=== PATIENT | female | born 1955 | race Caucasian/White ===

== ENCOUNTER 2019-01-16 13:08 | Inpatient (IN) | payer MEDICARE, BC ==
--- NOTE | 2019-01-16 14:37 | EDM.PDOC ---
ED HPI GENERAL MEDICAL PROBLEM - General Chief Complaint: Gastrointestinal Problem Stated Complaint: [facility] Time Seen by Provider: 01/16/19 14:37 Source of Information: Reports: Patient, Family History Limitations: Reports: No Limitations - History of Present Illness INITIAL COMMENTS - FREE TEXT/NARRATIVE: 63 years old female patient brought in by ambulance with chief complaint of nausea and vomiting and diarrhea since Thursday after she took her flu shot. Abdominal cramping. Very frequent loose stool and vomiting can't keep anything down. SHe had some chills but did not check her temperature. Denies any blood in the vomit or stool. No recent antibiotic use. Denies any urinary symptom. Denies any chest pain shortness breath. Feeling very weak and dizzy. Cannot keep anything down. Lower Back Pain Score (Numeric/FACES): 9 - Related Data Allergies Allergy/AdvReac Type Severity Reaction Status Date / Time iodine Allergy Anaphylactic Verified 01/16/19 13:23 Shock Home Meds: Home Meds Acetaminophen with Codeine [Tylenol with Codeine #3 Tablet] 2 tab PO DAILY 11/06 [History] Aspirin 81 mg PO DAILY 11/06/14 [History] Cyanocobalamin (Vitamin B-12) [B-12] 500 mcg PO DAILY 11/06/14 [History] Gabapentin [Neurontin] 600 mg PO BID 11/06/14 [History] Morphine [MS Contin] 30 mg PO BID 11/06/14 [History] PARoxetine [Paxil] 40 mg PO DAILY 11/06/14 [History] Simvastatin [Zocor] 10 mg PO BEDTIME 11/06/14 [History] Past Medical History Gastrointestinal History: Reports: None Musculoskeletal History: Reports: None - Past Surgical History Head Surgeries/Procedures: Reports: None GI Surgical History: Reports: Cholecystectomy Musculoskeletal Surgical History: Reports: Other (See Below) Other Musculoskeletal Surgeries/Procedures:: three back surgeries last one in 2005 Social & Family History - Tobacco Use Smoking Status *Q: Current Every Day Smoker Years of Tobacco use: 35 Packs/Tins Daily: 2 - Caffeine Use Caffeine Use: Reports: Soda - Recreational Drug Use Recreational Drug Use: No ED ROS GENERAL - Review of Systems Review Of Systems: Comprehensive ROS is negative, except as noted in HPI. ED EXAM, GI/ABD - Physical Exam Exam: See Below Exam Limited By: No Limitations General Appearance: Alert, WD/WN, No Apparent Distress Nose: Normal Inspection, Normal Mucosa, No Blood Throat/Mouth: Normal Inspection, Normal Lips, Normal Teeth, Normal Gums, Normal Oropharynx, Normal Voice, No Airway Compromise Head: Atraumatic, Normocephalic Neck: Normal Inspection, Supple, Non-Tender, Full Range of Motion Respiratory/Chest: No Respiratory Distress, Lungs Clear, Normal Breath Sounds, No Accessory Muscle Use, Chest Non-Tender Cardiovascular: Normal Peripheral Pulses, Regular Rate, Rhythm, No Edema, No Gallop, No JVD, No Murmur, No Rub GI/Abdominal Exam: Normal Bowel Sounds, Tender. No: Distended, Guarding, Rigid , Rebound, Hernia, Mass, Hepatomegaly Extremities: Normal Inspection, Normal Range of Motion, Non-Tender, Normal Capillary Refill, No Pedal Edema Psychiatric: Normal Affect, Normal Mood Skin Exam: Warm, Dry, Intact, Normal Color, No Rash Course - Vital Signs Last Recorded V/S: Last Vital Signs Temp 35.3 C 01/16/19 13:12 Pulse 62 01/16/19 13:12 Resp 18 01/16/19 13:12 BP 145/68 H 01/16/19 13:12 Pulse Ox 97 01/16/19 13:12 - Orders/Labs/Meds Orders: Active Orders 24 hr Category Date Time Status UA W/MICROSCOPIC [URIN] Urgent Lab 01/16/19 14:46 Ordered Medication Orders Vancomycin HCl (Vancocin 250 Mg/5 Ml Soln) 125 mg PO QID [facility] Last Admin: 01/16/19 18:23 Dose: 125 mg Labs: Laboratory Tests 01/16/19 01/16/19 01/16/19 Range/Units 15:00 15:00 15:00 WBC 17.2 H (4.5-11.0) K/uL RBC 5.69 H (3.30-5.50) M/uL Hgb 16.8 H (12.0-15.0) g/dL Hct 50.2 H (36.0-48.0) % MCV 88 (80-98) fL MCH 30 (27-31) pg MCHC 34 (32-36) % Plt Count 215 (150-400) K/uL Neut % (Auto) 86 H (36-66) % Lymph % (Auto) 9 L (24-44) % Braxton % (Auto) 5 (2-6) % Eos % (Auto) 0 L (2-4) % Baso % (Auto) 0 (0-1) % Sodium 144 (140-148) mmol/L Potassium 3.3 L (3.6-5.2) mmol/L Chloride 103 (100-108) mmol/L Carbon Dioxide 22 (21-32) mmol/L Anion Gap 22.3 H (5.0-14.0) mmol/L BUN 38 H (7-18) mg/dL Creatinine 1.3 H (0.6-1.0) mg/dL Est Cr Clr Drug Dosing 32.23 mL/min Estimated GFR (MDRD) 42 L (>60) Glucose 139 H (74-106) mg/dL Lactic Acid 3.0 H (0.4-2.0) mmol/L Calcium 10.0 (8.5-10.1) mg/dL Total Bilirubin 0.4 (0.2-1.0) mg/dL AST 39 H (15-37) U/L ALT 67 (12-78) U/L Alkaline Phosphatase 241 H (46-116) U/L C-Reactive Protein 5.99 H (0.0-0.3) mg/dL Total Protein 8.6 H (6.4-8.2) g/dL Albumin 3.9 (3.4-5.0) g/dL Globulin 4.7 H (2.3-3.5) g/dL Albumin/Globulin Ratio 0.8 L (1.2-2.2) Lipase 32 L (73-393) U/L Meds: Medications Generic Name Dose Route Start Last Admin Trade Name Freq PRN Reason Stop Dose Admin Vancomycin HCl 125 mg 01/16/19 18:15 01/16/19 18:23 Vancocin 250 Mg/5 Ml Soln PO 125 mg QID GIUSEPPE Administration Discontinued Medications Generic Name Dose Route Start Last Admin Trade Name Freq PRN Reason Stop Dose Admin Sodium Chloride 1,000 mls @ 500 mls/hr 01/16/19 14:46 01/16/19 15:24 Normal Saline IV 01/16/19 16:45 500 mls/hr .BOLUS STA Administration Sodium Chloride 1,000 mls @ 999 mls/hr 01/16/19 16:30 Normal Saline IV .BOLUS GIUSEPPE Sodium Chloride 1,000 mls @ 999 mls/hr 01/16/19 17:25 01/16/19 17:31 Normal Saline IV 01/16/19 18:25 999 mls/hr ONETIME ONE Administration Ondansetron HCl 4 mg 01/16/19 14:48 01/16/19 15:23 Zofran IVPUSH 01/16/19 14:49 4 mg ONETIME ONE Administration Ondansetron HCl 4 mg 01/16/19 17:30 01/16/19 17:35 Zofran IVPUSH 01/16/19 17:31 4 mg ONETIME ONE Administration Pantoprazole Sodium 40 mg 01/16/19 14:48 01/16/19 15:24 Protonix Iv IVPUSH 01/16/19 14:49 40 mg ONETIME ONE Administration Potassium Chloride 20 meq 01/16/19 16:23 01/16/19 17:26 Klor-Con M20 PO 01/16/19 16:24 20 meq ONETIME ONE Administration Vancomycin HCl 125 mg 01/16/19 22:00 Vancocin 250 Mg/5 Ml Soln PO QID GIUSEPPE Vancomycin HCl Confirm 01/16/19 17:59 01/16/19 18:25 Vancomycin Administered 01/16/19 18:00 Not Given Dose 1 gm .[address]TE .[facility] ONE - Re-Assessments/Exams Free Text/Narrative Re-Assessment/Exam: 01/16/19 18:53 Patient was seen and examined shortly after arrival. Stable. Given 1 L normal saline bolus 2. Given 4 mg IV Zofran 2. Also given formula gram IV morphine. Lab and imaging reviewed with the patient and her daughter at the bedside. Potassium 3.3. Given 20 mEq potassium chloride. Elevated white count, elevated lactic acid and acute kidney injury. Again given a second liter normal saline bolus. C. difficile result came back positive. Started on vancomycin [address] abdomen and pelvis shows possible colitis. Case was discussed with Dr. Rowell hospitalist manager pulmonary and he accepted admission for further management. Patient agrees with the plan. Stable for admission. Departure - Departure Time of Disposition: 17:30 Disposition: Admitted As Inpatient 67 Condition: Fair Clinical Impression: C. difficile colitis, Acute kidney injury, Hypokalemia - Discharge Information *PRESCRIPTION DRUG MONITORING PROGRAM REVIEWED*: Not Applicable *COPY OF PRESCRIPTION DRUG MONITORING REPORT IN PATIENT ISHAN: Not Applicable - My Orders Last 24 Hours: My Active Orders 01/16/19 14:46 UA W/MICROSCOPIC [URIN] Urgent - Assessment/Plan Last 24 Hours: My Active Orders 01/16/19 14:46 UA W/MICROSCOPIC [URIN] Urgent Plan: Admission to Dr. Rowell
[2019-01-16] MEDS ORDERED: Sodium Chloride 0.9% 1,000 ML IV STA (14:46)
[2019-01-16] MEDS ORDERED: Ondansetron 4 MG/2 ML SDV IVPUSH ONE ×2 (14:48→17:30)
[2019-01-16] MEDS ORDERED: Pantoprazole 40 MG Vial IVPUSH ONE (14:48)
[2019-01-16] MEDS ORDERED: Potassium Chloride 20 MEQ Tab.ER PO ONE (16:23)
[2019-01-16] MEDS ORDERED: Sodium Chloride 0.9% 1,000 ML IV SCH (16:30)
[2019-01-16] MEDS ORDERED: Sodium Chloride 0.9% 1,000 ML IV ONE (17:25)
--- NOTE | 2019-01-16 17:48 | CRLCT ---
INDICATION: Vomiting diarrhea pain. TECHNIQUE: Noncontrast CT abdomen and pelvis coronal sagittal reformat images obtained. COMPARISON: No comparison studies are available Findings: The heart size is normal. There is no pericardial effusion. Mild emphysema lung bases are clear. Small hiatal hernia. Unenhanced liver is unremarkable. Pancreas is unremarkable. Cholecystectomy no significant biliary dilatation. Kidneys are unremarkable. No hydronephrosis or nephrolithiasis. Normal caliber abdominal aorta. Diverticulosis. Colon is decompressed however there the could be some bowel wall thickening which is difficult to assess given lack of contrast, especially in the rectosigmoid colon. Urinary bladder is unremarkable. Lumbar fusion change. No suspicious bony lesions. IMPRESSION: 1. Colon is decompressed however there could be possible wall thickening of the colon specifically in the rectosigmoid colon which could be correlated with possible colitis. There is otherwise no acute findings in the abdomen or pelvis. Please note that all CT scans at this facility use dose modulation, iterative reconstruction, and/or weight-based dosing when appropriate to reduce radiation dose to as low as reasonably achievable. Dictated by Lolly Elliott MD @ Jan 16 2019 5:31PM Signed by Dr. Lolly Elliott @ Jan 16 2019 5:46PM
[2019-01-16] MEDS ORDERED: Vancomycin 1 GM SDV ONE (17:59)
[2019-01-16] MEDS: Vancomycin 250 MG/5 ML ML Oral Solution PO SCH ×2 (18:23→21:56)
--- NOTE | 2019-01-16 18:23 | PCM.HP.2 ---
H&P History of Present Illness - General Date of Service: 01/16/19 Admit Problem/Dx: Admission Diagnosis/Problem Admission Diagnosis/Problem Clostridium difficile enterocolitis Source of Information: Patient, Family, Provider History Limitations: Reports: No Limitations - History of Present Illness Initial Comments - Free Text/Narative: CC: I'm miserable HPI: Lilly presents to the emergency room today with diarrhea, nausea and vomiting that have been present since Thursday, about 48 hours ago. She had her flu shot on Thursday and then later in the evening developed initially nausea followed by vomiting and then diarrhea. She has had many liquid bowel movements per day since that time. She has had multiple rounds of emesis as well. Emesis has been yellow and there has not been any blood. No blood in her stool either. She is had subjective fevers and chills but has not measured any temperatures. She does not report any abdominal pain but has significant tenderness with examination. Appetite has been absent. She is not had anything to eat or drink that has stayed down since Thursday. She does not feel short of breath and has not had chest pain. No skin rashes. No sick contacts that she is aware of. She has not had recent antibiotics. These are steadily getting worse. Work-up in the emergency room revealed leukocytosis, acute kidney injury, dehydration and elevated lactic acid. CT scan showed nonspecific sigmoid colitis. C. difficile testing was positive. Lower Back Pain Score (Numeric/FACES): 9 - Related Data Allergies/Adverse Reactions: Allergies Allergy/AdvReac Type Severity Reaction Status Date / Time iodine Allergy Anaphylactic Verified 01/16/19 13:23 Shock Home Medications: Home Meds Acetaminophen with Codeine [Tylenol with Codeine #3 Tablet] 2 tab PO DAILY 11/06 [History] Aspirin 81 mg PO DAILY 11/06/14 [History] Cyanocobalamin (Vitamin B-12) [B-12] 500 mcg PO DAILY 11/06/14 [History] Gabapentin [Neurontin] 600 mg PO BID 11/06/14 [History] Morphine [MS Contin] 30 mg PO BID 11/06/14 [History] PARoxetine [Paxil] 40 mg PO DAILY 11/06/14 [History] Simvastatin [Zocor] 10 mg PO BEDTIME 11/06/14 [History] Past Medical History Gastrointestinal History: Reports: None Musculoskeletal History: Reports: None - Past Surgical History Head Surgeries/Procedures: Reports: None GI Surgical History: Reports: Cholecystectomy Musculoskeletal Surgical History: Reports: Other (See Below) Other Musculoskeletal Surgeries/Procedures:: three back surgeries last one in 2005 Social & Family History - Family History GI: Denies: Inflammatory Bowel Disease - Tobacco Use Smoking Status *Q: Current Every Day Smoker Years of Tobacco use: 35 Packs/Tins Daily: 2 - Caffeine Use Caffeine Use: Reports: Soda - Alcohol Use Alcohol Use History: No - Recreational Drug Use Recreational Drug Use: No H&P Review of Systems - Review of Systems: Review Of Systems: See Below Free Text/Narrative: A complete 12 point review of systems was obtained. Pertinent positives and negatives are noted in the history of present illness. All other systems were reviewed and were negative except as noted. Exam - Exam Exam: See Below - Vital Signs Vital Signs: Last Vital Signs Temp 35.3 C 01/16/19 13:12 Pulse 62 01/16/19 13:12 Resp 18 01/16/19 13:12 BP 145/68 H 01/16/19 13:12 Pulse Ox 97 01/16/19 13:12 Weight: 63.503 kg - Exam Quality Assessment: No: Supplemental Oxygen General: Alert, Oriented, Cooperative, Mild Distress HEENT: Conjunctiva Clear. No: Mucosa Moist & [place] (dry), Scleral Icterus Neck: Supple, Trachea Midline Lungs: Clear to Auscultation, Normal Respiratory Effort Cardiovascular: Regular Rate, Regular Rhythm. No: Systolic Murmur GI/Abdominal Exam: Normal Bowel Sounds, Soft, No Distention, Tender (moderate left lower abdomen ). No: Guarding Extremities: No Pedal Edema. No: Increased Warmth Peripheral Pulses: 2+: Dorsalis Pedis (L), Dorsalis Pedis (R) Skin: Warm, Dry Neuro Extensive - Mental Status: Alert, Oriented x3, Nl Response to Commands Neuro Extensive - Motor, Sensory, Reflexes: No: Dysarthria, Abnormal Motor, Tremor Psychiatric: Alert, Normal Affect - Patient Data Lab Results Last 24 hrs: Laboratory Results - last 24 hr 01/16/19 01/16/19 01/16/19 Range/Units 15:00 15:00 15:00 WBC 17.2 H (4.5-11.0) K/uL RBC 5.69 H (3.30-5.50) M/uL Hgb 16.8 H (12.0-15.0) g/dL Hct 50.2 H (36.0-48.0) % MCV 88 (80-98) fL MCH 30 (27-31) pg MCHC 34 (32-36) % Plt Count 215 (150-400) K/uL Neut % (Auto) 86 H (36-66) % Lymph % (Auto) 9 L (24-44) % Faulk % (Auto) 5 (2-6) % Eos % (Auto) 0 L (2-4) % Baso % (Auto) 0 (0-1) % Sodium 144 (140-148) mmol/L Potassium 3.3 L (3.6-5.2) mmol/L Chloride 103 (100-108) mmol/L Carbon Dioxide 22 (21-32) mmol/L Anion Gap 22.3 H (5.0-14.0) mmol/L BUN 38 H (7-18) mg/dL Creatinine 1.3 H (0.6-1.0) mg/dL Est Cr Clr Drug Dosing 32.23 mL/min Estimated GFR (MDRD) 42 L (>60) Glucose 139 H (74-106) mg/dL Lactic Acid 3.0 H (0.4-2.0) mmol/L Calcium 10.0 (8.5-10.1) mg/dL Total Bilirubin 0.4 (0.2-1.0) mg/dL AST 39 H (15-37) U/L ALT 67 (12-78) U/L Alkaline Phosphatase 241 H (46-116) U/L C-Reactive Protein 5.99 H (0.0-0.3) mg/dL Total Protein 8.6 H (6.4-8.2) g/dL Albumin 3.9 (3.4-5.0) g/dL Globulin 4.7 H (2.3-3.5) g/dL Albumin/Globulin Ratio 0.8 L (1.2-2.2) Lipase 32 L (73-393) U/L Result Diagrams: 01/16/19 15:00 01/16/19 15:00 James Results Last 24 hrs: Microbiology 01/16/19 15:32 Clostridioides difficile Toxin Assay - Final Stool / Feces Clostridioides difficile (PCR) - Final Imaging Impressions Last 24 hrs: CT abdomen and pelvis - images personally reviewed - mild nonspecific colitis of the sigmoid colon. No perforation. *Q Meaningful Use (ADM) - VTE Risk Assess *Q Each Risk Factor Represents 1 Point: None Total Score 1 Point Risk Factors: 0 Each Risk Factor Represents 2 Points: Age 60 - 74 Years Total Score 2 Point Risk Factors: 2 Each Risk Factor Represents 3 Points: None Total Score 3 Point Risk Factors: 0 Each Risk Factor Represents 5 Points: None Total Score 5 Point Risk Factors: 0 Venous Thromboembolism Risk Factor Score *Q: 2 - Problem List (1) C. difficile colitis SNOMED Code(s): 227902285 ICD Code: A04.72 - ENTEROCOLITIS D/T CLOSTRIDIUM DIFFICILE, NOT SPCF RECUR Status: Acute Current Visit: Yes (2) Acute kidney injury SNOMED Code(s): 70266164, 81611618 ICD Code: N17.9 - ACUTE KIDNEY FAILURE, UNSPECIFIED Status: Acute Current Visit: Yes (3) Hypokalemia SNOMED Code(s): 95817214 ICD Code: E87.6 - HYPOKALEMIA Status: Acute Current Visit: Yes (4) Tobacco dependence SNOMED Code(s): 70176977 ICD Code: F17.200 - NICOTINE DEPENDENCE, UNSPECIFIED, UNCOMPLICATED Status : Chronic Current Visit: Yes Problem List Initiated/Reviewed/Updated: Yes Orders Last 24hrs: Active Orders 24 hr Category Date Time Status Patient Status Manage Transfer [TRANSFER] Routine ADT 01/16/19 18:13 Ordered UA W/MICROSCOPIC [URIN] Urgent Lab 01/16/19 14:46 Ordered Sodium Chloride 0.9% [Normal Saline] 1,000 ml Med 01/16/19 17:25 Active IV ONETIME Vancomycin [Vancocin 250 MG/5 ML Soln] Med 01/16/19 18:15 Active 125 mg PO QID Resuscitation Status Routine Resus Stat 01/16/19 18:16 Ordered Medication Orders Sodium Chloride (Normal Saline) 1,000 mls @ 999 mls/hr IV ONETIME ONE Stop: 01/16/19 18:25 Last Admin: 01/16/19 17:31 Dose: 999 mls/hr Vancomycin HCl (Vancocin 250 Mg/5 Ml Soln) 125 mg PO QID [facility] Assessment/Plan Comment:: ASSESSMENT AND PLAN - C. difficile enterocolitis-symptoms of diarrhea, nausea, vomiting and some abdominal pain. She has leukocytosis as well as profuse diarrhea. Testing showed positive antigen but negative toxin testing but there is a high degree of likelihood this is acute C. difficile infection so I suspect that toxin testing was a false negative. She has received her first dose of vancomycin in the emergency room. Not safe for outpatient management given significant dehydration and inability to keep much of anything down. -Oral vancomycin 4 times daily -Probiotic twice daily -Symptom management for nausea and pain -IV fluids for hydration -Isolation status Acute kidney injury-creatinine is 1.3 and this is likely greater than 50% elevated from her baseline. -Fluids as above and repeat labs in the morning Hypokalemia-mild, secondary to increased losses as well as poor intake. -20 mEq of potassium chloride via IV piggyback -Potassium containing IV fluids Tobacco dependence-nicotine patch. Maintenance issues - - DVT prophylaxis -mechanical - GI prophylaxis -PPI - Nutrition -clear liquids - Gabriel catheter -not indicated CODE STATUS -full code Admission justification -this patient will be admitted for inpatient services and is medically appropriate meeting medical necessity for inpatient admission as outlined in my documentation. I reasonably expect the patient will require inpatient services that span a period time over 2 midnights. I reasonably expect this patient to be discharged or transferred within 96 hours [facility]. Disposition -I would anticipate discharge home after the hospital stay Primary care physician - Dr Mario Rowell M.D. - Mortality Measure Prognosis:: Good
[2019-01-16] MEDS ORDERED: Pantoprazole 40 MG Vial IV ONE (19:55)
[2019-01-16] MEDS ORDERED: Morphine 2 MG/ML Syringe IVPUSH PRN (19:55)
[2019-01-16] MEDS ORDERED: Ondansetron 4 MG Tab.DIS PO PRN (19:55)
[2019-01-16] MEDS ORDERED: Albuterol 0.083% 2.5 MG/3 ML Neb Soln NEB PRN (19:55)
[2019-01-16] MEDS ORDERED: Calcium Carbonate 500 MG Tab.Chew PO PRN (19:55)
[2019-01-16] MEDS ORDERED: Ibuprofen 600 MG Tab PO PRN (19:55)
[2019-01-16] MEDS ORDERED: LORazepam 2 MG/ML SDV IVPUSH PRN (19:55)
[2019-01-16] MEDS ORDERED: Ondansetron 4 MG/2 ML SDV IV PRN (19:55)
[2019-01-16] MEDS ORDERED: Promethazine 6.25 MG in Sodium Chloride 0.9% 50 ML IV PRN (19:55)
[2019-01-16] MEDS ORDERED: Potassium Chloride 20 MEQ, Lidocaine 1% 2 ML in Sodium Chloride 0.9% 100 ML IV SCH (20:30)
[2019-01-16] MEDS: NS + KCl 20mEq/L 1,000 ML IV SCH (20:40)
[2019-01-16] MEDS: Simvastatin 20 MG Tab PO SCH (20:46)
[2019-01-16] MEDS: Gabapentin 300 MG Cap PO SCH (20:46)
[2019-01-16] MEDS ORDERED: Lidocaine 1% 2 ML ONE (20:59)
[2019-01-16] MEDS ORDERED: Potassium Chloride 100 ML ONE (21:00)
[2019-01-16] MEDS: Lactobacillus Rhamnosus GG (Probiotic) Cap PO SCH (21:24)
[2019-01-16] MEDS: Morphine 30 MG Tab.ER PO SCH (21:24)
[2019-01-16] MEDS ORDERED: Vancomycin 250 MG/5 ML ML Oral Solution PO SCH (22:00)
[2019-01-17] MEDS: Acetaminophen 325 MG Tab PO PRN (00:05)
[2019-01-17] MEDS: NS + KCl 20mEq/L 1,000 ML IV SCH ×2 (03:25→12:01)
[2019-01-17] MEDS: Vancomycin 250 MG/5 ML ML Oral Solution PO SCH ×2 (05:06→10:07)
[2019-01-17] MEDS: Aspirin 81 MG Tab.Chew PO SCH (09:14)
[2019-01-17] MEDS: PARoxetine 20 MG Tab PO SCH (09:14)
[2019-01-17] MEDS: Cyanocobalamin (Vitamin B12) 1,000 MCG Tab PO SCH (09:14)
[2019-01-17] MEDS: Lactobacillus Rhamnosus GG (Probiotic) Cap PO SCH ×2 (09:14→20:33)
[2019-01-17] MEDS: Gabapentin 300 MG Cap PO SCH ×2 (09:15→20:33)
[2019-01-17] MEDS: Morphine 30 MG Tab.ER PO SCH ×2 (09:21→20:34)
[2019-01-17] MEDS: Acetaminophen/Codeine 300-30 MG Tab PO PRN ×2 (13:15→20:35)
--- NOTE | 2019-01-17 14:55 | PCM.PN ---
- General Info Date of Service: 01/17/19 Subjective Update: Ms. Garza has experienced moderate improvement since admission yesterday. She is had only minimal diarrhea and no significant temperature elevations. White blood cell count from admission and only mildly elevated. Functional Status: Reports: Pain Controlled, Tolerating Diet, Ambulating, Urinating - Review of Systems General: Reports: Weakness. Denies: Fever, Chills Pulmonary: Reports: No Symptoms Cardiovascular: Reports: No Symptoms Gastrointestinal: Reports: Decreased Appetite, Diarrhea. Denies: Abdominal Pain , Difficulty Swallowing, Nausea, Vomiting - Patient Data Vitals - Most Recent: Last Vital Signs Temp 98.2 F 01/17/19 11:54 Pulse 68 01/17/19 11:54 Resp 16 01/17/19 11:54 BP 128/69 01/17/19 11:54 Pulse Ox 94 L 01/17/19 11:54 Weight - Most Recent: 140 lb I&O - Last 24 Hours: Intake & Output 01/16/19 01/17/19 01/17/19 22:59 06:59 14:59 Intake Total 100 1888 600 Output Total 25 200 450 Balance 75 1688 150 Lab Results Last 24 Hours: Laboratory Results - last 24 hr 01/16/19 01/16/19 01/16/19 Range/Units 15:00 15:00 15:00 WBC 17.2 H (4.5-11.0) K/uL RBC 5.69 H (3.30-5.50) M/uL Hgb 16.8 H (12.0-15.0) g/dL Hct 50.2 H (36.0-48.0) % MCV 88 (80-98) fL MCH 30 (27-31) pg MCHC 34 (32-36) % Plt Count 215 (150-400) K/uL Neut % (Auto) 86 H (36-66) % Lymph % (Auto) 9 L (24-44) % [place] % (Auto) 5 (2-6) % Eos % (Auto) 0 L (2-4) % Baso % (Auto) 0 (0-1) % Sodium 144 (140-148) mmol/L Potassium 3.3 L (3.6-5.2) mmol/L Chloride 103 (100-108) mmol/L Carbon Dioxide 22 (21-32) mmol/L Anion Gap 22.3 H (5.0-14.0) mmol/L BUN 38 H (7-18) mg/dL Creatinine 1.3 H (0.6-1.0) mg/dL Est Cr Clr Drug Dosing 32.23 mL/min Estimated GFR (MDRD) 42 L (>60) Glucose 139 H (74-106) mg/dL Lactic Acid 3.0 H (0.4-2.0) mmol/L Calcium 10.0 (8.5-10.1) mg/dL Magnesium (1.8-2.4) mg/dL Total Bilirubin 0.4 (0.2-1.0) mg/dL AST 39 H (15-37) U/L ALT 67 (12-78) U/L Alkaline Phosphatase 241 H (46-116) U/L C-Reactive Protein 5.99 H (0.0-0.3) mg/dL Total Protein 8.6 H (6.4-8.2) g/dL Albumin 3.9 (3.4-5.0) g/dL Globulin 4.7 H (2.3-3.5) g/dL Albumin/Globulin Ratio 0.8 L (1.2-2.2) Lipase 32 L (73-393) U/L Urine Color (YELLOW) Urine Appearance (CLEAR) Urine pH (5.0-8.0) Ur Specific [place] (1.008-1.030) Urine Protein (NEGATIVE) mg/dL Urine Glucose (UA) (NEGATIVE) mg/dL Urine Ketones (NEGATIVE) mg/dL Urine Occult Blood (NEGATIVE) Urine Nitrite (NEGATIVE) Urine Bilirubin (NEGATIVE) Urine Urobilinogen (0.2-1.0) EU/dL Ur Leukocyte Esterase (NEGATIVE) Urine RBC (0-5) Urine WBC (0-5) Ur Epithelial Cells Amorphous Sediment Urine Bacteria Urine Mucus 01/16/19 01/17/19 01/17/19 Range/Units 21:08 04:00 04:00 WBC 12.3 H (4.5-11.0) K/uL RBC 4.65 (3.30-5.50) M/uL Hgb 13.7 D (12.0-15.0) g/dL Hct 42.3 (36.0-48.0) % MCV 91 (80-98) fL MCH 30 (27-31) pg MCHC 32 (32-36) % Plt Count 180 (150-400) K/uL Neut % (Auto) (36-66) % Lymph % (Auto) (24-44) % [place] % (Auto) (2-6) % Eos % (Auto) (2-4) % Baso % (Auto) (0-1) % Sodium 146 (140-148) mmol/L Potassium 4.1 (3.6-5.2) mmol/L Chloride 113 H (100-108) mmol/L Carbon Dioxide 22 (21-32) mmol/L Anion Gap 15.1 H (5.0-14.0) mmol/L BUN 25 H (7-18) mg/dL Creatinine 1.0 (0.6-1.0) mg/dL Est Cr Clr Drug Dosing 41.90 mL/min Estimated GFR (MDRD) 56 L (>60) Glucose 101 (74-106) mg/dL Lactic Acid 2.2 H (0.4-2.0) mmol/L Calcium 8.0 L D (8.5-10.1) mg/dL Magnesium 2.0 (1.8-2.4) mg/dL Total Bilirubin (0.2-1.0) mg/dL AST (15-37) U/L ALT (12-78) U/L Alkaline Phosphatase (46-116) U/L C-Reactive Protein (0.0-0.3) mg/dL Total Protein (6.4-8.2) g/dL Albumin (3.4-5.0) g/dL Globulin (2.3-3.5) g/dL Albumin/Globulin Ratio (1.2-2.2) Lipase (73-393) U/L Urine Color (YELLOW) Urine Appearance (CLEAR) Urine pH (5.0-8.0) Ur Specific [place] (1.008-1.030) Urine Protein (NEGATIVE) mg/dL Urine Glucose (UA) (NEGATIVE) mg/dL Urine Ketones (NEGATIVE) mg/dL Urine Occult Blood (NEGATIVE) Urine Nitrite (NEGATIVE) Urine Bilirubin (NEGATIVE) Urine Urobilinogen (0.2-1.0) EU/dL Ur Leukocyte Esterase (NEGATIVE) Urine RBC (0-5) Urine WBC (0-5) Ur Epithelial Cells Amorphous Sediment Urine Bacteria Urine Mucus 01/17/19 Range/Units 04:40 WBC (4.5-11.0) K/uL RBC (3.30-5.50) M/uL Hgb (12.0-15.0) g/dL Hct (36.0-48.0) % MCV (80-98) fL MCH (27-31) pg MCHC (32-36) % Plt Count (150-400) K/uL Neut % (Auto) (36-66) % Lymph % (Auto) (24-44) % [place] % (Auto) (2-6) % Eos % (Auto) (2-4) % Baso % (Auto) (0-1) % Sodium (140-148) mmol/L Potassium (3.6-5.2) mmol/L Chloride (100-108) mmol/L Carbon Dioxide (21-32) mmol/L Anion Gap (5.0-14.0) mmol/L BUN (7-18) mg/dL Creatinine (0.6-1.0) mg/dL Est Cr Clr Drug Dosing mL/min Estimated GFR (MDRD) (>60) Glucose (74-106) mg/dL Lactic Acid (0.4-2.0) mmol/L Calcium (8.5-10.1) mg/dL Magnesium (1.8-2.4) mg/dL Total Bilirubin (0.2-1.0) mg/dL AST (15-37) U/L ALT (12-78) U/L Alkaline Phosphatase (46-116) U/L C-Reactive Protein (0.0-0.3) mg/dL Total Protein (6.4-8.2) g/dL Albumin (3.4-5.0) g/dL Globulin (2.3-3.5) g/dL Albumin/Globulin Ratio (1.2-2.2) Lipase (73-393) U/L Urine Color Yellow (YELLOW) Urine Appearance Clear (CLEAR) Urine pH 6.0 (5.0-8.0) Ur Specific [place] 1.020 (1.008-1.030) Urine Protein Trace H (NEGATIVE) mg/dL Urine Glucose (UA) Negative (NEGATIVE) mg/dL Urine Ketones 40 H (NEGATIVE) mg/dL Urine Occult Blood Negative (NEGATIVE) Urine Nitrite Negative (NEGATIVE) Urine Bilirubin Negative (NEGATIVE) Urine Urobilinogen 0.2 (0.2-1.0) EU/dL Ur Leukocyte Esterase Negative (NEGATIVE) Urine RBC 0-5 (0-5) Urine WBC 0-5 (0-5) Ur Epithelial Cells Few Amorphous Sediment Not seen Urine Bacteria Few Urine Mucus Few James Results Last 24 Hours: Microbiology 01/16/19 15:32 Clostridioides difficile Toxin Assay - Final Stool / Feces Clostridioides difficile (PCR) - Final Med Orders - Current: Current Medications Acetaminophen (Tylenol) 650 mg PO Q4H PRN PRN Reason: Pain (Mild 1-3)/fever Last Admin: 01/17/19 00:05 Dose: 650 mg Acetaminophen/Codeine Phosphate (Tylenol With Codeine No.3 300mg/30mg) 2 tab PO Q4H PRN PRN Reason: Pain Last Admin: 01/17/19 13:15 Dose: 2 tab Albuterol (Proventil Neb Soln) 2.5 mg NEB Q4H PRN PRN Reason: Shortness Of Breath/wheezing Aspirin (Aspirin) 81 mg PO DAILY [facility] Last Admin: 01/17/19 09:14 Dose: 81 mg Calcium Carbonate/Glycine (Tums) 1,000 mg PO Q2H PRN PRN Reason: Indigestion Cyanocobalamin (Vitamin B12) 500 mcg PO DAILY [facility] Last Admin: 01/17/19 09:14 Dose: 500 mcg Gabapentin (Neurontin) 600 mg PO BID [facility] Last Admin: 01/17/19 09:15 Dose: 600 mg Promethazine HCl 6.25 mg/ (Sodium Chloride) 50.25 mls @ 200 mls/hr IV Q6H PRN PRN Reason: Nausea/Vomiting Ciprofloxacin/Dextrose 400 mg/ (Premix) 200 mls @ 200 mls/hr IV Q8H [facility] Metronidazole 500 mg/ Premix 100 mls @ 100 mls/hr IV Q8H [facility] Ibuprofen (Motrin) 600 mg PO Q6H PRN PRN Reason: Pain/Fever Lactobacillus Rhamnosus (Culturelle) 1 cap PO BID [facility] Last Admin: 01/17/19 09:14 Dose: 1 cap Lorazepam (Ativan) 0.5 mg IVPUSH Q4H PRN PRN Reason: Nausea/Vomiting Last Admin: 01/16/19 21:03 Dose: 0.5 mg Morphine Sulfate (Ms Contin) 30 mg PO BID [facility] Last Admin: 01/17/19 09:21 Dose: 30 mg Morphine Sulfate (Morphine) 2 mg IVPUSH Q2H PRN PRN Reason: Pain (severe 7-10) Ondansetron HCl (Zofran Odt) 4 mg PO Q6H PRN PRN Reason: Nausea able to take PO Ondansetron HCl (Zofran) 4 mg IV Q6H PRN PRN Reason: Nausea/Vomiting Paroxetine HCl (Paxil) 40 mg PO DAILY [facility] Last Admin: 01/17/19 09:14 Dose: 40 mg Simvastatin (Zocor) 10 mg PO BEDTIME [facility] Last Admin: 01/16/19 20:46 Dose: Not Given Discontinued Medications Sodium Chloride (Normal Saline) 1,000 mls @ 500 mls/hr IV .BOLUS STA Stop: 01/16/19 16:45 Last Admin: 01/16/19 15:24 Dose: 500 mls/hr Sodium Chloride (Normal Saline) 1,000 mls @ 999 mls/hr IV .BOLUS [facility] Sodium Chloride (Normal Saline) 1,000 mls @ 999 mls/hr IV ONETIME ONE Stop: 01/16/19 18:25 Last Admin: 01/16/19 17:31 Dose: 999 mls/hr Potassium Chloride 20 meq/Lidocaine HCl 2 ml/ Sodium Chloride 112 mls @ 50 mls/ hr IV Q2H [facility] Stop: 01/16/19 22:29 Last Infusion: 01/16/19 22:48 Dose: 25 mls/hr Potassium Chloride/Sodium Chloride (Normal Saline With 20 Meq Kcl) 1,000 mls @ 125 mls/hr IV ASDIRECTED [facility] Last Admin: 01/17/19 12:01 Dose: 125 mls/hr Lidocaine HCl (Xylocaine-Mpf 1%) Confirm Administered Dose 2 mls @ as directed .ROUTE .STK-MED ONE Stop: 01/16/19 21:00 Last Admin: 01/16/19 21:03 Dose: Not Given Potassium Chloride (Kcl 20 Meq In Water 100 Ml) Confirm Administered Dose 100 mls @ as directed .ROUTE .STK-MED ONE Stop: 01/16/19 21:01 Last Admin: 01/16/19 21:03 Dose: Not Given Ondansetron HCl (Zofran) 4 mg IVPUSH ONETIME ONE Stop: 01/16/19 14:49 Last Admin: 01/16/19 15:23 Dose: 4 mg Ondansetron HCl (Zofran) 4 mg IVPUSH ONETIME ONE Stop: 01/16/19 17:31 Last Admin: 01/16/19 17:35 Dose: 4 mg Pantoprazole Sodium (Protonix Iv) 40 mg IVPUSH ONETIME ONE Stop: 01/16/19 14:49 Last Admin: 01/16/19 15:24 Dose: 40 mg Pantoprazole Sodium (Protonix Iv) 40 mg IV ONETIME ONE Stop: 01/16/19 19:56 Last Admin: 01/16/19 20:39 Dose: Not Given Potassium Chloride (Klor-Con M20) 20 meq PO ONETIME ONE Stop: 01/16/19 16:24 Last Admin: 01/16/19 17:26 Dose: 20 meq Vancomycin HCl (Vancocin 250 Mg/5 Ml Soln) 125 mg PO QID [facility] Vancomycin HCl (Vancomycin) Confirm Administered Dose 1 gm .ROUTE .STK-MED ONE Stop: 01/16/19 18:00 Last Admin: 01/16/19 18:25 Dose: Not Given Vancomycin HCl (Vancocin 250 Mg/5 Ml Soln) 125 mg PO QID [facility] Last Admin: 01/17/19 10:07 Dose: 125 mg - Exam Quality Assessment: DVT Prophylaxis General: Alert, Oriented, Cooperative, Mild Distress Lungs: Clear to Auscultation, Normal Respiratory Effort Cardiovascular: Regular Rate, Regular Rhythm, No Murmurs GI/Abdominal Exam: Soft, Non-Tender, No Organomegaly, No Distention Extremities: Non-Tender, No Pedal Edema - Problem List Review Problem List Initiated/Reviewed/Updated: Yes - My Orders Last 24 Hours: My Active Orders 01/17/19 14:46 Convert IV to Saline Lock [OM.PC] Routine 01/17/19 15:00 Ciprofloxacin in D5W [Cipro in D5W 400 MG/200 ML] 400 mg Premix Bag 1 bag IV Q8H metroNIDAZOLE/Normal Saline [Flagyl 500 MG in NS 100 ML] 500 mg Premix Bag 1 bag IV Q8H 01/18/19 05:00 BASIC METABOLIC PANEL,BMP [CHEM] Timed CBC WITH AUTO DIFF [HEME] Timed - Plan Plan:: ASSESSMENT AND PLAN - Colitis-symptoms of diarrhea, nausea, vomiting and some abdominal pain. She feels improved from admission, marked improvement in diarrhea, no abdominal pain or fever. At this time I feel C. difficile infection is much less likely. She will be managed for bacterial colitis. -IV Cipro and Flagyl -Probiotic twice daily -Symptom management for nausea and pain -Saline lock IV -Continue clear liquids Acute kidney injury-improved with hydration -Continue to closely monitor urine output and renal function Hypokalemia-resolved Tobacco dependence-nicotine patch. Maintenance issues - - DVT prophylaxis -mechanical - GI prophylaxis -PPI - Nutrition -clear liquids - Gabriel catheter -not indicated CODE STATUS -full code Admission justification -this patient will be admitted for inpatient services and is medically appropriate meeting medical necessity for inpatient admission as outlined in my documentation. I reasonably expect the patient will require inpatient services that span a period time over 2 midnights. I reasonably expect this patient to be discharged or transferred within 96 hours [facility] Disposition -I would anticipate discharge home after the hospital stay Primary care physician - Dr Martin
[2019-01-17] MEDS ORDERED: metroNIDAZOLE/Normal Saline 500 MG in Premix Bag 1 BAG IV SCH (15:00)
[2019-01-17] MEDS ORDERED: Ciprofloxacin in D5W 400 MG in Premix Bag 1 BAG IV SCH ×2 (16:00)
[2019-01-17] MEDS ORDERED: Nicotine Polacrilex 2 MG Gum CHEW PRN (16:26)
[2019-01-17] MEDS: Nicotine 21 MG/24 Hr Patch TRDERM SCH (16:50)
[2019-01-17] MEDS: Simvastatin 20 MG Tab PO SCH (20:33)
[2019-01-17] MEDS: metroNIDAZOLE/Normal Saline 500 MG in Premix Bag 1 BAG IV SCH (22:16)
[2019-01-18] MEDS: Acetaminophen/Codeine 300-30 MG Tab PO PRN (02:29)
[2019-01-18] MEDS ORDERED: Ciprofloxacin in D5W 400 MG in Premix Bag 1 BAG IV SCH ×2 (04:00)
[2019-01-18] MEDS: metroNIDAZOLE/Normal Saline 500 MG in Premix Bag 1 BAG IV SCH (05:26)
[2019-01-18] MEDS: Nicotine 21 MG/24 Hr Patch TRDERM SCH (10:32)
[2019-01-18] MEDS: Lactobacillus Rhamnosus GG (Probiotic) Cap PO SCH ×2 (10:32→20:21)
[2019-01-18] MEDS: Aspirin 81 MG Tab.Chew PO SCH (10:32)
[2019-01-18] MEDS: Morphine 30 MG Tab.ER PO SCH ×2 (10:33→20:23)
[2019-01-18] MEDS: Cyanocobalamin (Vitamin B12) 1,000 MCG Tab PO SCH (10:34)
[2019-01-18] MEDS: Gabapentin 300 MG Cap PO SCH ×2 (10:34→20:21)
[2019-01-18] MEDS: PARoxetine 20 MG Tab PO SCH (10:35)
[2019-01-18] MEDS: metroNIDAZOLE 250 MG Tab PO SCH ×2 (15:11→20:21)
--- NOTE | 2019-01-18 16:35 | PCM.PN ---
- General Info Date of Service: 01/18/19 Subjective Update: Ms. Garza is experienced further improvement since yesterday, diarrhea has resolved. Vital signs have been stable and she has remained afebrile. Tolerating clear liquid diet without significant difficulty. Functional Status: Reports: Tolerating Diet, Ambulating, Urinating - Review of Systems General: Reports: Weakness. Denies: Fever, Chills Pulmonary: Reports: No Symptoms Cardiovascular: Reports: No Symptoms Gastrointestinal: Reports: No Symptoms - Patient Data Vitals - Most Recent: Last Vital Signs Temp 96.3 F 01/18/19 14:57 Pulse 64 01/18/19 14:57 Resp 18 01/18/19 14:57 BP 152/73 H 01/18/19 15:14 Pulse Ox 96 01/18/19 14:57 Weight - Most Recent: 140 lb I&O - Last 24 Hours: Intake & Output 01/18/19 01/18/19 01/18/19 06:59 14:59 22:59 Intake Total 1000 700 Output Total 150 375 200 Balance 850 325 -200 Lab Results Last 24 Hours: Laboratory Results - last 24 hr 01/18/19 01/18/19 Range/Units 06:00 06:00 WBC 7.9 (4.5-11.0) K/uL RBC 4.10 (3.30-5.50) M/uL Hgb 12.2 (12.0-15.0) g/dL Hct 38.2 (36.0-48.0) % MCV 93 (80-98) fL MCH 30 (27-31) pg MCHC 32 (32-36) % Plt Count 136 L (150-400) K/uL Neut % (Auto) 49 (36-66) % Lymph % (Auto) 39 (24-44) % [place] % (Auto) 8 H (2-6) % Eos % (Auto) 3 (2-4) % Baso % (Auto) 1 (0-1) % Sodium 139 L (140-148) mmol/L Potassium 3.8 (3.6-5.2) mmol/L Chloride 110 H (100-108) mmol/L Carbon Dioxide 19 L (21-32) mmol/L Anion Gap 13.8 (5.0-14.0) mmol/L BUN 13 (7-18) mg/dL Creatinine 0.8 (0.6-1.0) mg/dL Est Cr Clr Drug Dosing 52.37 mL/min Estimated GFR (MDRD) > 60 (>60) Glucose 101 (74-106) mg/dL Calcium 7.9 L (8.5-10.1) mg/dL Med Orders - Current: Current Medications Acetaminophen (Tylenol) 650 mg PO Q4H PRN PRN Reason: Pain (Mild 1-3)/fever Last Admin: 01/17/19 00:05 Dose: 650 mg Acetaminophen/Codeine Phosphate (Tylenol With Codeine No.3 300mg/30mg) 2 tab PO Q4H PRN PRN Reason: Pain Last Admin: 01/18/19 02:29 Dose: 2 tab Albuterol (Proventil Neb Soln) 2.5 mg NEB Q4H PRN PRN Reason: Shortness Of Breath/wheezing Aspirin (Aspirin) 81 mg PO DAILY [facility] Last Admin: 01/18/19 10:32 Dose: 81 mg Calcium Carbonate/Glycine (Tums) 1,000 mg PO Q2H PRN PRN Reason: Indigestion [facility] Cyanocobalamin (Vitamin B12) 500 mcg PO DAILY [facility] Last Admin: 01/18/19 10:34 Dose: 500 mcg Gabapentin (Neurontin) 600 mg PO BID [facility] Last Admin: 01/18/19 10:34 Dose: 600 mg Promethazine HCl 6.25 mg/ (Sodium Chloride) 50.25 mls @ 200 mls/hr IV Q6H PRN PRN Reason: Nausea/Vomiting Ibuprofen (Motrin) 600 mg PO Q6H PRN PRN Reason: Pain/Fever Lactobacillus Rhamnosus (Culturelle) 1 cap PO BID [facility] Last Admin: 01/18/19 10:32 Dose: 1 cap Lorazepam (Ativan) 0.5 mg IVPUSH Q4H PRN PRN Reason: Nausea/Vomiting Last Admin: 01/16/19 21:03 Dose: 0.5 mg Metronidazole (Metronidazole) 250 mg PO Q6H [facility] Last Admin: 01/18/19 15:11 Dose: 250 mg Morphine Sulfate (Ms Contin) 30 mg PO BID [facility] Last Admin: 01/18/19 10:33 Dose: 30 mg Morphine Sulfate (Morphine) 2 mg IVPUSH Q2H PRN PRN Reason: Pain (severe 7-10) Nicotine (Habitrol) 21 mg TRDERM DAILY [facility] Last Admin: 01/18/19 10:32 Dose: 21 mg Nicotine Polacrilex (Nicorelief) 2 mg CHEW Q1H PRN PRN Reason: Withdrawal Symptoms Ondansetron HCl (Zofran Odt) 4 mg PO Q6H PRN PRN Reason: Nausea able to take PO Ondansetron HCl (Zofran) 4 mg IV Q6H PRN PRN Reason: Nausea/Vomiting Paroxetine HCl (Paxil) 40 mg PO DAILY [facility] Last Admin: 01/18/19 10:35 Dose: 40 mg Simvastatin (Zocor) 10 mg PO BEDTIME [facility] Last Admin: 01/17/19 20:33 Dose: 10 mg Discontinued Medications Sodium Chloride (Normal Saline) 1,000 mls @ 500 mls/hr IV .BOLUS STA Stop: 01/16/19 16:45 Last Admin: 01/16/19 15:24 Dose: 500 mls/hr Sodium Chloride (Normal Saline) 1,000 mls @ 999 mls/hr IV .BOLUS [facility] Sodium Chloride (Normal Saline) 1,000 mls @ 999 mls/hr IV ONETIME ONE Stop: 01/16/19 18:25 Last Admin: 01/16/19 17:31 Dose: 999 mls/hr Potassium Chloride 20 meq/Lidocaine HCl 2 ml/ Sodium Chloride 112 mls @ 50 mls/ hr IV Q2H [facility] Stop: 01/16/19 22:29 Last Infusion: 01/16/19 22:48 Dose: 25 mls/hr Potassium Chloride/Sodium Chloride (Normal Saline With 20 Meq Kcl) 1,000 mls @ 125 mls/hr IV ASDIRECTED [facility] Last Admin: 01/17/19 12:01 Dose: 125 mls/hr Lidocaine HCl (Xylocaine-Mpf 1%) Confirm Administered Dose 2 mls @ as directed .ROUTE .STK-MED ONE Stop: 01/16/19 21:00 Last Admin: 01/16/19 21:03 Dose: Not Given Potassium Chloride (Kcl 20 Meq In Water 100 Ml) Confirm Administered Dose 100 mls @ as directed .ROUTE .STK-MED ONE Stop: 01/16/19 21:01 Last Admin: 01/16/19 21:03 Dose: Not Given Ciprofloxacin/Dextrose 400 mg/ (Premix) 200 mls @ 200 mls/hr IV Q8H [facility] Stop: 01/17/19 19:00 Last Admin: 01/17/19 16:42 Dose: 200 mls/hr Metronidazole 500 mg/ Premix 100 mls @ 100 mls/hr IV Q8H [facility] Stop: 01/17/19 18:00 Last Admin: 01/17/19 15:37 Dose: 100 mls/hr Metronidazole 500 mg/ Premix 100 mls @ 100 mls/hr IV Q8H [facility] Last Admin: 01/18/19 05:26 Dose: 100 mls/hr Ciprofloxacin/Dextrose 400 mg/ (Premix) 200 mls @ 200 mls/hr IV Q12H [facility] Last Admin: 01/18/19 03:39 Dose: 200 mls/hr Ondansetron HCl (Zofran) 4 mg IVPUSH ONETIME ONE Stop: 01/16/19 14:49 Last Admin: 01/16/19 15:23 Dose: 4 mg Ondansetron HCl (Zofran) 4 mg IVPUSH ONETIME ONE Stop: 01/16/19 17:31 Last Admin: 01/16/19 17:35 Dose: 4 mg Pantoprazole Sodium (Protonix Iv) 40 mg IVPUSH ONETIME ONE Stop: 01/16/19 14:49 Last Admin: 01/16/19 15:24 Dose: 40 mg Pantoprazole Sodium (Protonix Iv) 40 mg IV ONETIME ONE Stop: 01/16/19 19:56 Last Admin: 01/16/19 20:39 Dose: Not Given Potassium Chloride (Klor-Con M20) 20 meq PO ONETIME ONE Stop: 01/16/19 16:24 Last Admin: 01/16/19 17:26 Dose: 20 meq Vancomycin HCl (Vancocin 250 Mg/5 Ml Soln) 125 mg PO QID [facility] Vancomycin HCl (Vancomycin) Confirm Administered Dose 1 gm .ROUTE .STK-MED ONE Stop: 01/16/19 18:00 Last Admin: 01/16/19 18:25 Dose: Not Given Vancomycin HCl (Vancocin 250 Mg/5 Ml Soln) 125 mg PO QID [facility] Last Admin: 01/17/19 10:07 Dose: 125 mg - Exam Quality Assessment: DVT Prophylaxis General: Alert, Oriented, Cooperative, No Acute Distress Lungs: Clear to Auscultation, Normal Respiratory Effort Cardiovascular: Regular Rate, Regular Rhythm, No Murmurs GI/Abdominal Exam: Soft, Non-Tender, No Organomegaly, No Distention Extremities: Non-Tender, No Pedal Edema Sepsis Event Note - Evaluation Sepsis Screening Result: No Definite Risk - Focused Exam Vital Signs: Vital Signs Temp Pulse Resp BP Pulse Ox 01/18/19 15:14 152/73 H 01/18/19 14:57 96.3 F 64 18 164/79 H 96 01/18/19 11:13 98.1 F 67 14 151/73 H 96 01/18/19 08:19 96.4 F 58 L 16 155/84 H 94 L Date Exam was Performed: 01/18/19 Time Exam was Performed: 16:33 - Problem List Review Problem List Initiated/Reviewed/Updated: Yes - My Orders Last 24 Hours: My Active Orders 01/17/19 16:26 Nicotine Polacrilex [Nicorelief] 2 mg CHEW Q1H PRN 01/17/19 16:30 Nicotine [Habitrol] 21 mg TRDERM DAILY 01/18/19 14:00 metroNIDAZOLE 250 mg PO Q6H 01/18/19 16:30 Ciprofloxacin [Ciprofloxacin HCl] 500 mg PO BIDAC 01/18/19 Lunch Soft Diet [DIET] - Plan Plan:: ASSESSMENT AND PLAN - Colitis-symptoms of diarrhea, nausea, vomiting and some abdominal pain. She feels improved from admission, diarrhea has resolved and she is tolerating current diet. -IV Cipro and Flagyl -Probiotic twice daily -Symptom management for nausea and pain -Saline lock IV -Advanced to soft low residue diet Acute kidney injury-improved with hydration -Continue to closely monitor urine output and renal function Hypokalemia-resolved Tobacco dependence-nicotine patch. Maintenance issues - - DVT prophylaxis -mechanical - GI prophylaxis -PPI - Nutrition -clear liquids - Gabriel catheter -not indicated CODE STATUS -full code Admission justification -this patient will be admitted for inpatient services and is medically appropriate meeting medical necessity for inpatient admission as outlined in my documentation. I reasonably expect the patient will require inpatient services that span a period time over 2 midnights. I reasonably expect this patient to be discharged or transferred within 96 hours after admission to the [facility]. Disposition -I would anticipate discharge home after the hospital stay Primary care physician - Dr Martin
[2019-01-18] MEDS: Ciprofloxacin 500 MG Tab PO SCH (17:30)
[2019-01-18] MEDS: Simvastatin 20 MG Tab PO SCH (20:21)
[2019-01-18] MEDS: Acetaminophen 325 MG Tab PO PRN (21:56)
[2019-01-18] MEDS: Lisinopril 10 MG Tab PO SCH (22:46)
[2019-01-19] MEDS: metroNIDAZOLE 250 MG Tab PO SCH ×2 (01:42→08:03)
[2019-01-19 07:36] VITALS: BP 159/87; PULSE 71
[2019-01-19] MEDS: Lactobacillus Rhamnosus GG (Probiotic) Cap PO SCH (08:03)
[2019-01-19] MEDS: Aspirin 81 MG Tab.Chew PO SCH (08:03)
[2019-01-19] MEDS: Ciprofloxacin 500 MG Tab PO SCH (08:04)
[2019-01-19] MEDS: Cyanocobalamin (Vitamin B12) 1,000 MCG Tab PO SCH (08:04)
[2019-01-19] MEDS: Gabapentin 300 MG Cap PO SCH (08:05)
[2019-01-19] MEDS: Nicotine 21 MG/24 Hr Patch TRDERM SCH (08:05)
[2019-01-19] MEDS: PARoxetine 20 MG Tab PO SCH (08:06)
[2019-01-19] MEDS: Lisinopril 10 MG Tab PO SCH (09:52)
[2019-01-19] MEDS: Morphine 30 MG Tab.ER PO SCH (09:52)
--- NOTE | 2019-01-19 12:16 | PCM.DCSUM1 ---
Discharge Summary - Hospital Course Brief History: Ms. Garza is a 63-year-old woman who was admitted through the emergency department with weakness and diarrhea secondary to infectious colitis. - Discharge Data Discharge Date: 01/19/19 Discharge Disposition: Home, Self-Care 01 Condition: Fair - Referral to Home Health Primary Care Physician: PCP None - Discharge Diagnosis/Problem(s) (1) Colitis presumed infectious SNOMED Code(s): 78638723 ICD Code: K52.9 - NONINFECTIVE GASTROENTERITIS AND COLITIS, UNSPECIFIED Status: Acute Current Visit: Yes (2) Dehydration SNOMED Code(s): 86150693 ICD Code: E86.0 - DEHYDRATION Status: Acute Current Visit: Yes - Patient Summary/Data Hospital Course: Ms. Garza presented to the emergency room with diarrhea, nausea and vomiting that have been present for 2 days. She had her flu shot on Thursday and then later in the evening developed initially nausea followed by vomiting and then diarrhea. She has had many liquid bowel movements per day since that time. She has had multiple rounds of emesis as well. Emesis has been yellow and there has not been any blood. No blood in her stool either. She is had subjective fevers and chills but has not measured any temperatures. She does not report any abdominal pain but has significant tenderness with examination. Appetite has been absent. She is not had anything to eat or drink that has stayed down since Thursday. No sick contacts that she is aware of. She has not had recent antibiotics. Work-up in the emergency room revealed leukocytosis, acute kidney injury, dehydration and elevated lactic acid. CT scan showed nonspecific sigmoid colitis. Testing for Clostridium difficile did show presence of bacteria, testing for toxin was negative. On admission she was given pain medication, antiemetic therapy, and IV fluids for hydration. Elevation in lactic acid level was felt to be secondary to dehydration and lactic acid level did normalize with fluid resuscitation. She initially was started on oral vancomycin, this was discontinued the following day after toxin was reported negative. She was treated with IV metronidazole and ciprofloxacin. Over the next few days she had no significant temperature elevations and normalization of her white blood cell count. Acute kidney injury resolved with hydration. By the time of discharge she was tolerating a soft diet with almost total resolution of the diarrhea. She was treated with probiotic therapy throughout hospitalization and this will be continued as an outpatient. She will be treated with an additional 7 days of oral antibiotic therapy with metronidazole and ciprofloxacin. Activity will be as tolerated and she will resume her usual diet. Follow-up appointment will be scheduled with her primary care provider within one week. - Patient Instructions Diet: Usual Diet as Tolerated Activity: As Tolerated Other/Special Instructions: JUDITH hare w/ Dr. Martin w/in 1 week. - Discharge Plan *PRESCRIPTION DRUG MONITORING PROGRAM REVIEWED*: Not Applicable *COPY OF PRESCRIPTION DRUG MONITORING REPORT IN PATIENT ISHAN: Not Applicable Prescriptions/Med Rec: Ciprofloxacin [Ciprofloxacin HCl] 500 mg PO BIDAC #14 tablet Lactobacillus Rhamnosus GG [Culturelle] 1 cap PO BID #60 cap metroNIDAZOLE 250 mg PO Q6H #28 tablet Home Medications: Home Meds Acetaminophen with Codeine [Tylenol with Codeine #3 Tablet] 2 tab PO DAILY 11/06 [History] Aspirin 81 mg PO DAILY 11/06/14 [History] Cyanocobalamin (Vitamin B-12) [B-12] 500 mcg PO DAILY 11/06/14 [History] Gabapentin [Neurontin] 600 mg PO BID 11/06/14 [History] Morphine [MS Contin] 30 mg PO BID 11/06/14 [History] PARoxetine [Paxil] 40 mg PO DAILY 11/06/14 [History] Simvastatin [Zocor] 10 mg PO BEDTIME 11/06/14 [History] Ciprofloxacin [Ciprofloxacin HCl] 500 mg PO BIDAC #14 tablet 01/19/19 [Rx] Lactobacillus Rhamnosus GG [Culturelle] 1 cap PO BID #60 cap 01/19/19 [Rx] metroNIDAZOLE 250 mg PO Q6H #28 tablet 01/19/19 [Rx] Referrals: Mark Martin MD [Physician] - 01/26/19 1:30 pm (Please arrive 15 minutes early to register for your appointment.) - Discharge Summary/Plan Comment DC Time >30 min.: No - Patient Data Vitals - Most Recent: Last Vital Signs Temp 96.5 F 01/19/19 07:00 Pulse 71 01/19/19 07:00 Resp 16 01/19/19 07:00 BP 159/87 H 01/19/19 09:52 Pulse Ox 96 01/19/19 07:00 Weight - Most Recent: 140 lb I&O - Last 24 hours: Intake & Output 01/18/19 01/19/19 01/19/19 22:59 06:59 14:59 Intake Total 560 360 Output Total 700 500 Balance -140 -500 360 Med Orders - Current: Current Medications Acetaminophen (Tylenol) 650 mg PO Q4H PRN PRN Reason: Pain (Mild 1-3)/fever Last Admin: 01/18/19 21:56 Dose: 650 mg Acetaminophen/Codeine Phosphate (Tylenol With Codeine No.3 300mg/30mg) 2 tab PO Q4H PRN PRN Reason: Pain Last Admin: 01/18/19 02:29 Dose: 2 tab Albuterol (Proventil Neb Soln) 2.5 mg NEB Q4H PRN PRN Reason: Shortness Of Breath/wheezing Aspirin (Aspirin) 81 mg PO DAILY [facility] Last Admin: 01/19/19 08:03 Dose: 81 mg Calcium Carbonate/Glycine (Tums) 1,000 mg PO Q2H PRN PRN Reason: Indigestion [facility] Last Admin: 01/19/19 08:04 Dose: 500 mg Cyanocobalamin (Vitamin B12) 500 mcg PO DAILY [facility] Last Admin: 01/19/19 08:04 Dose: 500 mcg Gabapentin (Neurontin) 600 mg PO BID [facility] Last Admin: 01/19/19 08:05 Dose: 600 mg Promethazine HCl 6.25 mg/ (Sodium Chloride) 50.25 mls @ 200 mls/hr IV Q6H PRN PRN Reason: Nausea/Vomiting Ibuprofen (Motrin) 600 mg PO Q6H PRN PRN Reason: Pain/Fever Lactobacillus Rhamnosus (Culturelle) 1 cap PO BID [facility] Last Admin: 01/19/19 08:03 Dose: 1 cap Lisinopril (Prinivil) 10 mg PO DAILY [facility] Last Admin: 01/19/19 09:52 Dose: 10 mg Lorazepam (Ativan) 0.5 mg IVPUSH Q4H PRN PRN Reason: Nausea/Vomiting Last Admin: 01/16/19 21:03 Dose: 0.5 mg Metronidazole (Metronidazole) 250 mg PO Q6H [facility] Last Admin: 01/19/19 08:03 Dose: 250 mg Morphine Sulfate (Ms Contin) 30 mg PO BID [facility] Last Admin: 01/19/19 09:52 Dose: 30 mg Morphine Sulfate (Morphine) 2 mg IVPUSH Q2H PRN PRN Reason: Pain (severe 7-10) Nicotine (Habitrol) 21 mg TRDERM DAILY [facility] Last Admin: 01/19/19 08:05 Dose: 21 mg Nicotine Polacrilex (Nicorelief) 2 mg CHEW Q1H PRN PRN Reason: Withdrawal Symptoms Ondansetron HCl (Zofran Odt) 4 mg PO Q6H PRN PRN Reason: Nausea able to take PO Ondansetron HCl (Zofran) 4 mg IV Q6H PRN PRN Reason: Nausea/Vomiting Paroxetine HCl (Paxil) 40 mg PO DAILY [facility] Last Admin: 01/19/19 08:06 Dose: 40 mg Simvastatin (Zocor) 10 mg PO BEDTIME [facility] Last Admin: 01/18/19 20:21 Dose: 10 mg Discontinued Medications Sodium Chloride (Normal Saline) 1,000 mls @ 500 mls/hr IV .BOLUS STA Stop: 01/16/19 16:45 Last Admin: 01/16/19 15:24 Dose: 500 mls/hr Sodium Chloride (Normal Saline) 1,000 mls @ 999 mls/hr IV .BOLUS [facility] Sodium Chloride (Normal Saline) 1,000 mls @ 999 mls/hr IV ONETIME ONE Stop: 01/16/19 18:25 Last Admin: 01/16/19 17:31 Dose: 999 mls/hr Potassium Chloride 20 meq/Lidocaine HCl 2 ml/ Sodium Chloride 112 mls @ 50 mls/ hr IV Q2H [facility] Stop: 01/16/19 22:29 Last Infusion: 01/16/19 22:48 Dose: 25 mls/hr Potassium Chloride/Sodium Chloride (Normal Saline With 20 Meq Kcl) 1,000 mls @ 125 mls/hr IV ASDIRECTED [facility] Last Admin: 01/17/19 12:01 Dose: 125 mls/hr Lidocaine HCl (Xylocaine-Mpf 1%) Confirm Administered Dose 2 mls @ as directed .ROUTE .STK-MED ONE Stop: 01/16/19 21:00 Last Admin: 01/16/19 21:03 Dose: Not Given Potassium Chloride (Kcl 20 Meq In Water 100 Ml) Confirm Administered Dose 100 mls @ as directed .ROUTE .STK-MED ONE Stop: 01/16/19 21:01 Last Admin: 01/16/19 21:03 Dose: Not Given Ciprofloxacin/Dextrose 400 mg/ (Premix) 200 mls @ 200 mls/hr IV Q8H [facility] Stop: 01/17/19 19:00 Last Admin: 01/17/19 16:42 Dose: 200 mls/hr Metronidazole 500 mg/ Premix 100 mls @ 100 mls/hr IV Q8H [facility] Stop: 01/17/19 18:00 Last Admin: 01/17/19 15:37 Dose: 100 mls/hr Metronidazole 500 mg/ Premix 100 mls @ 100 mls/hr IV Q8H [facility] Last Admin: 01/18/19 05:26 Dose: 100 mls/hr Ciprofloxacin/Dextrose 400 mg/ (Premix) 200 mls @ 200 mls/hr IV Q12H [facility] Last Admin: 01/18/19 03:39 Dose: 200 mls/hr Ondansetron HCl (Zofran) 4 mg IVPUSH ONETIME ONE Stop: 01/16/19 14:49 Last Admin: 01/16/19 15:23 Dose: 4 mg Ondansetron HCl (Zofran) 4 mg IVPUSH ONETIME ONE Stop: 01/16/19 17:31 Last Admin: 01/16/19 17:35 Dose: 4 mg Pantoprazole Sodium (Protonix Iv) 40 mg IVPUSH ONETIME ONE Stop: 01/16/19 14:49 Last Admin: 01/16/19 15:24 Dose: 40 mg Pantoprazole Sodium (Protonix Iv) 40 mg IV ONETIME ONE Stop: 01/16/19 19:56 Last Admin: 01/16/19 20:39 Dose: Not Given Potassium Chloride (Klor-Con M20) 20 meq PO ONETIME ONE Stop: 01/16/19 16:24 Last Admin: 01/16/19 17:26 Dose: 20 meq Vancomycin HCl (Vancocin 250 Mg/5 Ml Soln) 125 mg PO QID [facility] Vancomycin HCl (Vancomycin) Confirm Administered Dose 1 gm .ROUTE .STK-MED ONE Stop: 01/16/19 18:00 Last Admin: 01/16/19 18:25 Dose: Not Given Vancomycin HCl (Vancocin 250 Mg/5 Ml Soln) 125 mg PO QID [facility] Last Admin: 01/17/19 10:07 Dose: 125 mg - Exam General: Reports: Alert, Oriented, Cooperative, No Acute Distress Lungs: Reports: Clear to Auscultation, Normal Respiratory Effort Cardiovascular: Reports: Regular Rate, Regular Rhythm, No Murmurs GI/Abdominal Exam: Soft, Non-Tender, No Organomegaly, No Distention
== END 2019-01-19 13:05 | disposition home or self-care (01) | DRG 372 ==
LOC: JP.ED 13:08 → JP.MS 18:13
PROVIDERS: ADMIT Internal Medicine; ATTEND Hospitalist
DX: A04.72 Enterocolitis due to Clostridium difficile, not specified as recurrent (principal); N17.9 Acute kidney failure, unspecified; F17.210 Nicotine dependence, cigarettes, uncomplicated; F17.200 Nicotine dependence, unspecified, uncomplicated; E87.6 Hypokalemia; E86.0 Dehydration; Z79.82 Long term (current) use of aspirin; Z79.899 Other long term (current) drug therapy; Z90.49 Acquired absence of other specified parts of digestive tract; Z88.8 Allergy status to other drugs, medicaments and biological substances
CPT/HCPCS: 36415; 74176; 80048; 80053; 81001; 83605; 83690; 83735; 85025; 85027; 86140; 87493; 96361; 96374; 96375; 96376; 99284; 99285-25; A9270-GY; C9113; J0744; J2001; J2060; J2405; J3480; J3490; J7030; J7040; J7050

== ENCOUNTER 2020-03-04 19:51 | Emergency (ER) | payer MEDICARE, BC ==
--- NOTE | 2020-03-04 20:22 | EDM.PDOC ---
ED HPI GENERAL MEDICAL PROBLEM - General Chief Complaint: Neurological Problem Stated Complaint: WEAKNESS Time Seen by Provider: 03/04/20 20:05 Source of Information: Reports: Patient, Family History Limitations: Reports: No Limitations - History of Present Illness INITIAL COMMENTS - FREE TEXT/NARRATIVE: 65-year-old female with a previous stroke in 2009, arrives with right-sided weakness and expressive aphasia for the last 16 hours. She is fallen 3 times at home today and is having difficulty ambulating. She still lives independently so she called her daughter and she brought her in to be seen. Patient continues to have some mild right-sided objective weakness and expressive aphasia. No pain. Onset: Unknown/Unsure (Patient thinks something happened or started at 3 AM last night) Associated Symptoms: Reports: Confusion (Mild confusion), Weakness. Denies: Cough, Fever/Chills, Headaches, Nausea/Vomiting (Right-sided), Shortness of Breath Denies pain Pain Score (Numeric/FACES): 0 - Related Data Allergies Allergy/AdvReac Type Severity Reaction Status Date / Time iodine Allergy Severe Anaphylactic Verified 03/04/20 20:21 Shock Home Meds: Home Meds Acetaminophen with Codeine [Tylenol with Codeine #3 Tablet] 2 tab PO ASDIRECTED PRN 11/06/14 [History] Aspirin 81 mg PO DAILY 11/06/14 [History] Cyanocobalamin (Vitamin B-12) [B-12] 500 mcg PO DAILY 11/06/14 [History] Gabapentin [Neurontin] 900 mg PO BID 11/06/14 [History] Morphine [MS Contin] 30 mg PO BID 11/06/14 [History] PARoxetine [Paxil] 40 mg PO DAILY 11/06/14 [History] Simvastatin [Zocor] 10 mg PO BEDTIME 11/06/14 [History] Lactobacillus Rhamnosus GG [Culturelle] 1 cap PO BID #60 cap 01/19/19 [Rx] metroNIDAZOLE 250 mg PO Q6H #28 tablet 01/19/19 [Rx] lisinopriL [Lisinopril] 10 mg PO DAILY 03/04/20 [History] traZODone HCl [Trazodone HCl] 100 mg PO BEDTIME 03/04/20 [History] Past Medical History Gastrointestinal History: Reports: None Musculoskeletal History: Reports: None - Infectious Disease History Infectious Disease History: Reports: Chicken Pox, Mumps, Pertussis (Whooping Cough) - Past Surgical History Head Surgeries/Procedures: Reports: None GI Surgical History: Reports: Cholecystectomy Musculoskeletal Surgical History: Reports: Other (See Below) Other Musculoskeletal Surgeries/Procedures:: three back surgeries last one in 2005 Social & Family History - Family History Family Medical History: No Pertinent Family History - Caffeine Use Caffeine Use: Reports: Soda ED ROS GENERAL - Review of Systems Review Of Systems: See Below Constitutional: Denies: Fever, Chills, Malaise HEENT: Reports: No Symptoms Respiratory: Denies: Shortness of Breath Cardiovascular: Denies: Chest Pain GI/Abdominal: Denies: Abdominal Pain, Nausea, Vomiting Skin: Reports: No Symptoms Neurological: Reports: Other (Mild grasp strength weakness on the right compared to left, and mild dorsiflexion strength of the right ankle compared to the left.). Denies: Headache Psychiatric: Reports: No Symptoms ED EXAM, NEURO - Physical Exam Exam: See Below Exam Limited By: No Limitations General Appearance: Alert, No Apparent Distress Eye Exam: Bilateral Eye: EOMI, PERRL Head Exam: Atraumatic Neck: Supple, Non-Tender Respiratory/Chest: Lungs Clear Cardiovascular: Regular Rate, Rhythm GI/Abdominal: Soft, Non-Tender Neurological: Alert, Oriented x 3, Other (Patient displays some persistent expressive aphasia, and minimal right grasp strength weakness compared to left and weakness to dorsiflexion of the right foot compared to left) Psychiatric: Normal Affect, Normal Mood Skin Exam: Warm, Dry Course - Vital Signs Last Recorded V/S: Last Vital Signs Temp 99.6 F 03/04/20 21:45 Pulse 97 03/04/20 21:45 Resp 16 03/04/20 21:45 BP 140/65 03/04/20 21:45 Pulse Ox 96 03/04/20 21:45 - Orders/Labs/Meds Labs: Laboratory Tests 03/04/20 03/04/20 03/04/20 Range/Units 20:45 20:45 20:45 WBC 10.3 (4.5-11.0) K/uL RBC 4.39 (3.30-5.50) M/uL Hgb 13.6 (12.0-15.0) g/dL Hct 42.3 (36.0-48.0) % MCV 96 (80-98) fL MCH 31 (27-31) pg MCHC 32 (32-36) % Plt Count 153 (150-400) K/uL Neut % (Auto) 67 H (36-66) % Lymph % (Auto) 21 L (24-44) % [place] % (Auto) 7 H (2-6) % Eos % (Auto) 4 (2-4) % Baso % (Auto) 0 (0-1) % PT 10.1 (9.5-12.0) sec INR 0.93 (0.80-1.20) Sodium 142 (140-148) mmol/L Potassium 4.5 (3.6-5.2) mmol/L Chloride 106 (100-108) mmol/L Carbon Dioxide 27 (21-32) mmol/L Anion Gap 9.0 (5.0-14.0) mmol/L BUN 41 H D (7-18) mg/dL Creatinine 4.9 H* D (0.6-1.0) mg/dL Est Cr Clr Drug Dosing 8.33 mL/min Estimated GFR (MDRD) 9 L (>60) Glucose 102 (74-106) mg/dL Calcium 9.1 D (8.5-10.1) mg/dL SARS CoV-2 RNA Rapid MAGDA 03/04/20 Range/Units 21:58 WBC (4.5-11.0) K/uL RBC (3.30-5.50) M/uL Hgb (12.0-15.0) g/dL Hct (36.0-48.0) % MCV (80-98) fL MCH (27-31) pg MCHC (32-36) % Plt Count (150-400) K/uL Neut % (Auto) (36-66) % Lymph % (Auto) (24-44) % [place] % (Auto) (2-6) % Eos % (Auto) (2-4) % Baso % (Auto) (0-1) % PT (9.5-12.0) sec INR (0.80-1.20) Sodium (140-148) mmol/L Potassium (3.6-5.2) mmol/L Chloride (100-108) mmol/L Carbon Dioxide (21-32) mmol/L Anion Gap (5.0-14.0) mmol/L BUN (7-18) mg/dL Creatinine (0.6-1.0) mg/dL Est Cr Clr Drug Dosing mL/min Estimated GFR (MDRD) (>60) Glucose (74-106) mg/dL Calcium (8.5-10.1) mg/dL SARS CoV-2 RNA Rapid MAGDA Negative Meds: Medications Discontinued Medications Generic Name Dose Route Start Last Admin Trade Name Zachq PRN Reason Stop Dose Admin Sodium Chloride 1,000 mls @ 1,000 mls/hr 03/04/20 21:30 03/04/20 21:40 Normal Saline IV 300 mls/hr [facility]fusion - Re-Assessments/Exams Free Text/Narrative Re-Assessment/Exam: 03/04/20 21:[address] scan without contrast of the head was negative, CBC was normal but chemistry panel revealed significant kidney injury with a creatinine of 4.9, GFR only 6. Patient is not dehydrated. Normal saline was initiated, and phone consultation made with [facility] regarding neuro deficits and renal failure. Transfer will be arranged by air since it is still within a 24-hour window for intervention. Departure - Departure Time of Disposition: 22:52 Disposition: DC/Tfer to Other Clinical Impression: Neurological deficit present, Expressive aphasia Acute renal failure Qualifiers: Acute renal failure type: unspecified Qualified Code(s): N17.9 - Acute kidney failure, unspecified - Discharge Information Referrals: PCP,None [Primary Care Provider] - Forms: ED Department Discharge Care Plan Goals: Patient will be flown to [facility] for interventional neurology evaluation along with nephrology consultation and treatment for acute renal failure. Sepsis Event Note (ED) - Focused Exam Vital Signs: Vital Signs Temp Pulse Resp BP Pulse Ox 03/04/20 21:45 99.6 F 97 16 140/65 96 03/04/20 21:01 97.4 F 92 16 125/59 L 97 03/04/20 20:57 92 125/59 L 03/04/20 19:57 97.4 F 107 H 16 152/85 H 97
--- NOTE | 2020-03-04 21:10 | CRLCT ---
INDICATION: expressive aphasia, weakness INDICATION: Expressive aphasia. Weakness. TECHNIQUE: CT head without contrast. COMPARISON: MRI of the brain, 05/10/2018. FINDINGS: CSF spaces: Within normal limits for age. Brain parenchyma: The mckeon-white differentiation is normal. No sign of mass, hemorrhage, or midline shift. Skull base and calvarium: The visualized paranasal sinuses and mastoid air cells are clear. The visualized orbits are grossly unremarkable. No skull fractures. IMPRESSION: 1. There is no acute intracranial hemorrhage, shift of midline structures, or mass effect. 2. No hyperdense MCA sign. 3. Mckeon-white matter differentiation appears maintained on noncontrast head CT. Dictated by Arben Ortiz MD @ 03/04/2020 9:09:46 PM Please note that all CT scans at this facility use dose modulation, iterative reconstruction, and/or weight-based dosing when appropriate to reduce radiation dose to as low as reasonably achievable. Dictated by: Arben Ortiz MD @ 03/04/2020 21:09:55 (Electronically Signed)
[2020-03-04] MEDS ORDERED: Sodium Chloride 3% 500 ML IV SCH (21:15)
[2020-03-04] MEDS ORDERED: Sodium Chloride 0.9% 1,000 ML IV SCH (21:30)
[2020-03-04 21:46] VITALS: BP 140/65; PULSE 97
== END 2020-03-04 21:58 | disposition other institution (70) ==
LOC: JP.ED 19:51
DX: R29.818 Other symptoms and signs involving the nervous system (principal); R47.01 Aphasia; N17.9 Acute kidney failure, unspecified; R53.1 Weakness; R41.0 Disorientation, unspecified; Z20.822 Contact with and (suspected) exposure to COVID-19; Z88.8 Allergy status to other drugs, medicaments and biological substances; Z79.899 Other long term (current) drug therapy
CPT/HCPCS: 36415; 70450; 80048; 85025; 85610; 99285; J7030; U0002

== ENCOUNTER 2020-05-31 06:27 | Day surgery (SDC) | payer MEDICARE, BC ==
[2020-05-31] MEDS ORDERED: Dextrose 5%-Lactated Ringers 1,000 ML IV SCH (07:00)
[2020-05-31] MEDS ORDERED: fentaNYL 100 MCG/2 ML SDV ONE (07:07)
[2020-05-31] MEDS ORDERED: Propofol 200 MG/20 ML SDV ONE (07:07)
[2020-05-31] MEDS ORDERED: Midazolam 1 MG/ML 2 ML SDV ONE (07:07)
[2020-05-31 09:49] VITALS: BP 113/59; PULSE 62
--- NOTE | 2020-06-04 15:32 | OR ---
DATE OF PROCEDURE: 05/31/2020 SURGEON: Baudilio Evans MD PREOPERATIVE DIAGNOSIS: Indication for screening colonoscopy. POSTOPERATIVE DIAGNOSIS: Left colonic diverticulosis. OPERATIVE PROCEDURE: Flexible colonoscopy. ANESTHESIA: IV sedation. INDICATIONS FOR PROCEDURE: A 65-year-old female presenting for screening colonoscopy. She has no personal or family history of colonic neoplasia. Plan is to proceed with a colonoscopy with biopsies and/or polypectomy as indicated. Potential risks including bleeding and perforation were discussed and the patient wishes to proceed. DETAILS OF PROCEDURE: The patient was taken to the operating room and placed in a left lateral decubitus position. IV sedation was administered, after which the initial digital rectal exam was performed and was unremarkable. Colonoscope was then passed into the rectum with retroflexion revealing uncomplicated hemorrhoidal columns. Scope was eventually passed to the level of the cecum. The prep was quite good with only a small amount of liquid stool present to that level. There were no diverticula. No areas of colitis. No areas of polyps or other signs of neoplasia. Scope was then withdrawn, the above findings reconfirmed, and the procedure then concluded. Recommendation would be to repeat the colonoscopy in 10 years. Baudilio Evans MD /[id number]
== END 2020-05-31 10:13 | disposition home or self-care (01) ==
LOC: JP.SDS 06:27
PROVIDERS: ATTEND Surgery
DX: Z12.11 Encounter for screening for malignant neoplasm of colon (principal); K57.30 Diverticulosis of large intestine without perforation or abscess without bleeding; K64.9 Unspecified hemorrhoids; E78.5 Hyperlipidemia, unspecified; I10 Essential (primary) hypertension; F17.210 Nicotine dependence, cigarettes, uncomplicated; Z88.8 Allergy status to other drugs, medicaments and biological substances; Z87.19 Personal history of other diseases of the digestive system
CPT/HCPCS: G0121; J2250; J2704; J3010; J7121